=== PATIENT | female | born 1975 | race African-American/Black ===

== ENCOUNTER 2020-05-18 10:14 | Inpatient (IN) | payer OTHER ==
[~2020-05-18] VITALS: Ht 160 cm; Wt 86.2 kg
--- NOTE | 2020-05-18 10:31 | NUR ---
PACIENTE REFIERE DOLOR ABDOMINAL DESDE EL .SE OTILIA SIGNOS VITALES Y SE UBICA EN AREA DE PASILLO.
--- NOTE | 2020-05-18 11:57 | NUR ---
SE ORIENTA A PTE SOBRE PROCESO DE VENOPUNCION, PITER DE MUESTRAS Y ADMINISTRACION DE MED IV. PTE ESPERA POR ESTUDIO A REALIZAR.
--- NOTE | 2020-05-18 16:02 | NUR ---
SE RECIBE PTE ALERTA Y ORIENTADA X3, SE RECIBE PTE CANALIZADA EN BRAZO DERECHO AREA TRACY DE EDEMA Y DE ENROJECIMIENTO. PTE SE LE PITER MUESTRA DE LAB. MAURICE ORDEN MEDICA BAJO MEDIDAS ASEPTICAS. SE EDUCA A PTE SOBRE TRATAMIENTO MEDICO.
[2020-05-25] MEDS ORDERED: INTESTINEX680 M1 PO (10:50)
[2020-05-25] MEDS ORDERED: PEPCID AC20 MG PO (10:50)
[2020-05-25] MEDS ORDERED: ULTRACET PO (10:51)
== END 2020-05-25 11:35 | disposition home or self-care (01) | DRG 415 ==
LOC: ER 10:14 → MEDI 16:49 → SEC-K 16:49 → MEDJ 05-19 16:54 → MEDI 05-19 16:54 → SURH 05-22 18:03
PROVIDERS: Surgery; ADMIT Internal Medicine; ATTEND Internal Medicine
PROC: BF37ZZZ Magnetic Resonance Imaging (MRI) of Pancreas (ICD-10-PCS; 2020-05-18)
PROC: BW40ZZZ Ultrasonography of Abdomen (ICD-10-PCS; 2020-05-18)
PROC: 0FJ44ZZ Inspection of Gallbladder, Percutaneous Endoscopic Approach (ICD-10-PCS; 2020-05-22)
PROC: 0WQF0ZZ Repair Abdominal Wall, Open Approach (ICD-10-PCS; 2020-05-22)
PROC: 0WJF4ZZ Inspection of Abdominal Wall, Percutaneous Endoscopic Approach (ICD-10-PCS; 2020-05-22)
PROC: 0DNU0ZZ Release Omentum, Open Approach (ICD-10-PCS; 2020-05-22)
PROC: 0DN60ZZ Release Stomach, Open Approach (ICD-10-PCS; 2020-05-22)
PROC: 0FN00ZZ Release Liver, Open Approach (ICD-10-PCS; 2020-05-22)
PROC: 0FN40ZZ Release Gallbladder, Open Approach (ICD-10-PCS; 2020-05-22)
PROC: 0WJG4ZZ Inspection of Peritoneal Cavity, Percutaneous Endoscopic Approach (ICD-10-PCS; 2020-05-22)
PROC: 0FT40ZZ Resection of Gallbladder, Open Approach (ICD-10-PCS; principal; 2020-05-22 11:45)
DX: K80.00 Calculus of gallbladder with acute cholecystitis without obstruction (principal); K42.0 Umbilical hernia with obstruction, without gangrene; K82.A1 Gangrene of gallbladder in cholecystitis; K66.0 Peritoneal adhesions (postprocedural) (postinfection); Z20.828 Contact with and (suspected) exposure to other viral communicable diseases

== ENCOUNTER 2025-08-07 18:05 | Emergency (ER) | payer OTHER ==
[~2025-08-07] VITALS: Ht 157.5 cm; Wt 90.7 kg
[~2025-08-07 18:05] MED LIST: INTESTINEX680 M1 PO; PEPCID AC20 MG PO; ULTRACET PO
[2025-08-07] MEDS ORDERED: [UNRECOGNIZED DRUG - OTHER] (19:49)
[2025-08-07] MEDS ORDERED: ONDANSETRON HCL 2 MG/ML VIAL IV ONE (21:00)
[2025-08-07] MEDS ORDERED: FAMOTIDINE/PF 20 MG/2 ML VIAL IV ONE (21:00)
[2025-08-07] MEDS ORDERED: MORPHINE SULFATE 2 MG/ML SYRINGE IV ONE (21:00)
[2025-08-07] MEDS ORDERED: 0.9 % SODIUM CHLORIDE 1,000 ML IV ONE (21:00)
[2025-08-07] MEDS ORDERED: ONDANSETRON HCL 2 MG/ML VIAL ONE (21:10)
[2025-08-07] MEDS ORDERED: FAMOTIDINE/PF 20 MG/2 ML VIAL ONE (21:10)
[2025-08-07 21:39] LABS: BASO % 0.2 % (0.1-1.2); EOS # 0.10 (0.04-0.54); EOS % 1.2 % (0.7-7.0); LYMPH # 1.90 (1.18-3.74); LYMPH % 23.4 % (19.3-53.1); MEAN PLATELET VOLUME 10.80 fl (9.4-12.4); MONO # 0.38 (0.24-0.82); MONO % 4.7 % (4.7-12.5); NEUT # 5.71 (1.56-6.13); NEUT % 70.3 % (34.0-71.1); RED CELL DISTRIBUTION WIDTH 13.7 % (11.6-14.4)
[2025-08-07] MEDS ORDERED: MORPHINE SULFATE 4 MG/ML CARTRIDGE IV ONE (21:45)
[2025-08-07 22:00] LABS: ALT/SGPT 22.0 U/L (12-78); AST/SGOT 16.0 U/L (15-37); BILIRUBIN TOTAL 0.62 mg/dL (0.3-1.2); BUN CREA RATIO 17.0 (7.0-25.0); CREATININE SERUM 0.78 mg/dL (0.55-1.02); GFR 78.83; GLOBULINA 4.2 G/DL (2.4-3.5); GLUCOSE FASTING 108.0 mg/dL (65-100); OSMOLALITY SERUM 280.0 MOSM/KG (275-295)
[2025-08-08] MEDS ORDERED: PEPCID AC20 MG PO (01:38)
[2025-08-08] MEDS ORDERED: ZOFRAN8 MG PO (01:38)
[2025-08-08] MEDS ORDERED: DICY20TA PO (01:40)
== END 2025-08-08 02:04 | disposition home or self-care (01) ==
LOC: ER 18:06
PROVIDERS: Preventive Medicine Public Health & General Preventive Medicine
DX: A08.4 Viral intestinal infection, unspecified (principal); R11.10 Vomiting, unspecified; R10.13 Epigastric pain; I10 Essential (primary) hypertension